=== PATIENT | male | born 1965 | race Caucasian/White ===

== ENCOUNTER 2018-04-15 23:36 | Emergency (ER) | payer SELFPAY ==
[2018-04-16 03:37] VITALS: BP 134/88
--- NOTE | 2018-04-16 04:12 | Emergency Department Report ---
- General Chief Complaint: Wound/Laceration Stated Complaint: LACERATION Time Seen by Provider: 04/16/18 04:06 Source: patient Mode of arrival: Ambulatory Limitations: No Limitations - History of Present Illness Initial Comments: 52-year-old -[place] male presents to the emergency room with a laceration to the left forearm. 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 Patient ports no past medical history currently takes no medications on a daily basis. Patient's_when he last had a tetanus shot. Leading is controlled at this time -: During the night Extremity Location: Left: Forearm (dorsum side approximately 3 cm) Patient Tetanus UTD: No Context: accidental Associated Symptoms: none Treatments Prior to Arrival: bandage - Related Data Previous Rx's Medication Instructions Recorded Last Taken Type Cephalexin [Keflex] 500 mg PO BID #20 capsule 04/16/18 Unknown Rx Ibuprofen [Motrin 600 MG tab] 600 mg PO Q8H PRN #15 tablet 04/16/18 Unknown Rx Allergies Allergy/AdvReac Type Severity Reaction Status Date / Time No Known Allergies Allergy Unverified 04/16/18 04:52 ED Review of Systems ROS: Stated complaint: LACERATION Other details as noted in HPI Comment: All other systems reviewed and negative Skin: other (cut to left forearm) ED Past Medical Hx - Past Medical History Previous Medical History?: No - Surgical History Past Surgical History?: No - Social History Smoking Status: Current Every Day Smoker Substance Use Type: None - Medications Home Medications: Home Medications Medication Instructions Recorded Confirmed Last Taken Type Cephalexin [Keflex] 500 mg PO BID #20 capsule 04/16/18 Unknown Rx Ibuprofen [Motrin 600 MG tab] 600 mg PO Q8H PRN #15 tablet 04/16/18 Unknown Rx ED Physical Exam - General Limitations: No Limitations General appearance: alert, in no apparent distress - ENT ENT exam: Present: mucous membranes moist - Neurological Exam Neurological exam: Present: alert, oriented X3 - Psychiatric Psychiatric exam: Present: normal affect, normal mood - Expanded Skin Exam Expanded Type of lesion: Present: laceration (left forearm approximately 3 cm eating control) ED Course Vital Signs 04/15/18 04/16/18 23:43 03:37 Temperature 98.6 F Pulse Rate 89 82 Respiratory 18 18 Rate Blood Pressure 134/88 [Right] O2 Sat by Pulse 99 99 Oximetry - Laceration /Wound Repair Left Arm Wound Location: upper extremity (left forearm) Wound Length (cm): 3 Wound's Depth, Shape: into muscle, linear Wound Explored: no foreign body removed Irrigated w/ Saline (ccs): 45 Betadine Prep?: Yes Anesthesia: 1% Lidocaine Wound Repaired With: sutures Suture Size/Type: 4:0, nylon Number of Sutures: 8 Layer Closure?: No Sterile Dressing Applied?: Yes Progress: Patient tolerated procedure well ED Medical Decision Making - Medical Decision Making Patient has been evaluated by this provider fast track. Laceration repair with sutures 8. Prophylactic Keflex for prevention of infection. Ibuprofen 600 mg prescribed for pain management. Discussed patient to follow-up in 7-10 days for suture removal. Follow up sooner if there is any signs of infection such as increased pain increased swelling redness. No discharge or fever. Critical care attestation.: If time is entered above; I have spent that time in minutes in the direct care of this critically ill patient, excluding procedure time. ED Disposition Clinical Impression: Laceration Disposition: DC-01 TO HOME OR SELFCARE Is pt being admited?: No Does the pt Need Aspirin: No Condition: Stable Instructions: Laceration (ED), Suture Care (ED) Additional Instructions: Please keep the wound clean and dry. Complete antibiotics as prescribed. Return back to the emergency room in 7-10 days for suture removal. Please take pain medication as needed. Prescriptions: Cephalexin [Keflex] 500 mg PO BID #20 capsule Ibuprofen [Motrin 600 MG tab] 600 mg PO Q8H PRN #15 tablet PRN Reason: Pain Referrals: PRIMARY CARE, [Primary Care Provider] - 3-5 Days Forms: Work/School Release Form(ED)
[2018-04-16] MEDS ORDERED: BOOSTRIX IM ONE (04:52)
== END 2018-04-16 05:17 | disposition home or self-care (01) ==
LOC: ED 23:36
DX: S51.812A Laceration without foreign body of left forearm, initial encounter (principal); F17.200 Nicotine dependence, unspecified, uncomplicated; W27.8XXA Contact with other nonpowered hand tool, initial encounter; Y93.89 Activity, other specified; Y99.8 Other external cause status; Y92.89 Other specified places as the place of occurrence of the external cause
CPT/HCPCS: 90471; 90715; 99282